=== PATIENT | male | born 1980 | race Caucasian/White ===

== ENCOUNTER 2019-10-31 11:52 | Emergency (ER) | payer BC, SELFPAY ==
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
[2019-10-31 12:15] VITALS: BP 136/89; PULSE 60; RESP 16; TEMP 36.5; O2SAT 100
[2019-10-31 12:29] LABS: Add Urine Microscopic? YES; Appearance Urine Clear (Clear); Bacteria Urine Trace /hpf; Bilirubin Urine Negative (Negative); Blood Urine Negative (Negative); Color Urine Yellow (Yellow); Glucose Urine UA Negative (Negative); Ketones Urine Negative (Negative); Leukocyte Esterase Ur Negative LEU/UL (Negative); Mucus Urine Rare /lpf; Nitrate Urine Negative (Negative); Protein Urine 2+ mg/dL (Negative); RBC Urine 0-2 /hpf (0-2); Specific Grav Ur 1.025 (1.001-1.035); Squamous Epithelial Cell Urine Rare /hpf (Few); Urobilinogen Urine Negative mg/dL (<2.0); WBC Urine 0-3 /hpf
[2019-10-31 12:35] LABS: Basophils Percent Auto 0.6 % (0.2-1.2); Eosinophils Percent Auto 0.1 % (0-4.4); Hematocrit 43.1 % (42.0-52.0); Immature Granulocyte Absolute 0.01 K/mm3 (0.00-0.031); Immature Granulocyte Percent A 0.1 % (0-0.5); Lymphocytes Absolute Auto 1.14 K/mm3 (0.9-3.2); Lymphocytes Percent Auto 16.1 % (18.3-44.2); Mean Corpuscular HGB Conc 34.8 g/dl (32-36); Mean Corpuscular Hemoglobin 30.4 pg (26-34); Mean Corpuscular Volume 87.4 fl (80-100); Mean Platelet Volume 10.3 fl (7.4-10.4); Monocytes Absolute Auto 0.3 K/mm3 (0.1-0.6); Monocytes Percent Auto 4.7 % (2.6-8.5); Neutrophils Absolute Auto 5.5 K/mm3 (1.3-6.7); Neutrophils Percent Auto 78.4 % (45.5-73.1); Platelet Count Result 211 k/mm3 (150-375); Red Blood Count 4.93 M/mm3 (4.6-6.20); Red Cell Distribution Width 12.6 % (11.5-14.5); White Blood Count 7.1 K/mm3 (4.5-10.0)
[2019-10-31 12:47] LABS: Amphetamine Screen Urine Negative (Negative); Barbiturate Screen Urine Negative (Negative); Benzodiazepines Screen Urine Negative (Negative); Cannabinoid Screen Urine Positive (Negative); Cocaine Screen Urine Negative (Negative); Methadone Screen Urine Negative (Negative); Opiate Screen Urine Negative (Negative); Phencyclidine Screen Urine Negative (Negative)
[2019-10-31 12:47] LABS: Ethanol < 10 mg/dL (<10)
[2019-10-31 12:49] LABS: Alanine Aminotransferase 24 U/L (4-50); Albumin Level 4.6 g/dL (3.5-5.1); Alkaline Phosphatase 65 U/L (38-126); Aspartate Amino Transferase 27 U/L (17-59); Bilirubin,Total 0.9 mg/dL (0.2-1.3); Blood Urea Nitrogen 17 mg/dL (9-20); Carbon Dioxide 27 mmol/L (22-30); Chloride 106 mmol/L (98-107); Estimated CRCL calculation 134 ml/min; Estimated Glomerular Filt Rate > 60; Glucose 103 mg/dL (75-110); Sodium 140 mmol/L (137-145)
[2019-10-31 13:17] LABS: Thyroid Stimulating Hormone 0.907 uIU/mL (0.465-4.680)
--- NOTE | 2019-10-31 14:15 | PC.NURSE ---
CRISIS IS HERE TO CONSULT WITH PATIENT
[2019-10-31 18:00] VITALS: BP 151/86; PULSE 58; RESP 14; TEMP 36.8; O2SAT 100
--- NOTE | 2019-10-31 18:09 | PC.NURSE ---
FOOD TRAY ORDERED FOR PT.
[2019-10-31 19:27] VITALS: BP 148/69; PULSE 55; RESP 12; TEMP 36.4; O2SAT 98
[2019-10-31 19:45] VITALS: BP 148/69; PULSE 58; RESP 14; O2SAT 100
--- NOTE | 2019-10-31 19:55 | PC.NURSE ---
Called Mis to transport to [place]...ETA 2029. #[phone]
== END 2019-10-31 20:55 ==
PROVIDERS: Emergency Medicine; Emergency Provider Emergency Medicine
DX: R45.851 Suicidal ideations (principal); R45.87 Impulsiveness; F32.9 Major depressive disorder, single episode, unspecified; Z87.891 Personal history of nicotine dependence
CPT/HCPCS: 36415; 80053; 80307; 81001; 84443; 85025; 99285

== ENCOUNTER 2021-01-17 18:06 | Emergency (ER) | payer BC, SELFPAY ==
[2021-01-17 18:12] VITALS: BP 144/82; PULSE 56; RESP 16; TEMP 37.1; O2SAT 99
--- NOTE | 2021-01-17 18:16 | ED.SKABFB ---
HPI - Skin/Abscess/Foreign Bdy General Chief complaint: Skin/Abscess/Foreign Body Stated complaint: rash Source: patient and RN notes reviewed Mode of arrival: ambulatory History of Present Illness HPI narrative: This is a 40-year-old male who presented to urgent care with a rash left lower extremity and forehead extending to the backside of his neck on the left side. 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 Patient notes that he put [id number] poison manuel treatment on as well as calamine lotion and apple cider vinegar to his lower extremity with improvement . He noted that the rash on his left lower extremity did improve but spread to his forehead and neck today. Patient does have scaling to his lower extremity and a small amount papules to the left side of his forehead that extent to his left back neck. denies any to visual disturbance, edema or erythema,oozing warm to site. The patient denies SOB, CP, palpitation, extremity numbness, lightheadedness, dizziness, constipation, diarrhea, chills, or fever. MD complaint: rash Related Data Home Medications Medication Instructions Recorded Confirmed sertraline 100 mg PO DAILY 10/31/19 bupropion HCl mg PO 01/17/21 Allergies Allergy/AdvReac Type Severity Reaction Status Date / Time No Known Allergies Allergy Unknown Verified 10/31/19 12:14 Review of Systems Review of Systems: Narrative: A 14 organ system Review of Systems was performed and pertinent positives included in the HPI, otherwise remaining ROS is negative. [facility] Past Medical History Medical History (Updated 01/17/21 @ 18:25 by DRAGAN Warren) Finger fracture, left GI bleed Nose fracture Surgical History Surgical History (Updated 10/31/19 @ 12:01 by Jackelyn Harkins) History of hand surgery Left 1st finger Family History Family History Father Hypertension Family history of heart disease in male family member before age 55 Grandparent Diabetes mellitus Acute myocardial infarction Family history of arthritis Other Family history of gout Social History Social History (Updated 10/31/19 @ 11:59 by Jackelyn Harkins) Smoking status: Former smoker Smoking end date: 07/29/02 Alcohol intake: former Substance use: current Substance use type: marijuana Gender identity (if verbalized by the patient): Male Exam Narrative: Exam Narrative: GENERAL: This is a well-nourished, well-developed patient, in no apparent distress. HEAD: normocephalic, atraumatic. EYES: PERRL. Sclera clear/white. Vision is grossly intact. EARS: External ears normal, auditory canals clear and without drainage, TMs normal without perforation. Hearing grossly intact. NOSE: External nose normal with no obvious nasal discharge, nares without redness, no rhinorrhea. THROAT: Mucous membranes moist, posterior pharynx clear. NECK: Neck supple, non-tender without lymphadenopathy, masses or thyromegaly. CARDIOVASCULAR: Regular rate and rhythm without murmurs, gallops, or rubs. RESPIRATORY: Clear to auscultation. Breath sounds equal bilaterally. No wheezes, rales, or rhonchi. GASTROINTESTINAL: Abdomen soft, non-tender, nondistended. Bowel sounds are active. No hepato-splenomegaly, or palpable masses. No guarding. SKIN: scaling to his lower extremity and a small amount papules to the left side of his forehead that extent to his left back neck NEURO: awake, alert, and oriented to person, place and time. There were no obvious focal neurologic abnormalities. Steady gait EXTREMITIES: Normal range of motion. No edema. No calf tenderness. Negative Homans sign bilaterally. BACK: Nontender without deformity or crepitance. No flank tenderness. Course Course Emergency Course: Patient given 7 days of prednisone instructed to continue use of calamine lotion with Benadryl to avoid scratchi
== END 2021-01-17 18:29 | disposition home or self-care (01) ==
PROVIDERS: Emergency Provider Nurse Practitioner; PCP Emergency Medicine
DX: L23.7 Allergic contact dermatitis due to plants, except food (principal); L25.9 Unspecified contact dermatitis, unspecified cause; Z87.891 Personal history of nicotine dependence
CPT/HCPCS: 99213; G0463

== ENCOUNTER 2021-11-24 15:54 | Emergency (ER) | payer BC, SELFPAY ==
--- NOTE | 2021-11-24 16:00 | ED.WOUNDLAC ---
HPI - Wound/Laceration General Chief Complaint: Wound/Laceration Stated Complaint: FINGER LACERATION Time Seen by Provider: 11/24/21 16:00 Source: patient Mode of arrival: ambulatory Limitations: no limitations History of Present Illness HPI narrative: 41-year-old male presented for complaint of laceration to the left index finger injury today. He states he cut the finger on a piece of farm equipment, covered it with a dressing but states it continues to bleed. Tetanus is up-to-date 10/2017. He denies numbness, tingling, weakness or decreased range of motion to the finger. Related Data Allergies Allergy/AdvReac Type Severity Reaction Status Date / Time No Known Allergies Allergy Unknown Verified 10/31/19 12:14 Review of Systems Review of Systems: CONSTITUTIONAL: Denies body aches, fever, chills, or sweats. EYES: Denies visual changes, redness, or discharge. ENT: Denies rhinorrhea, congestion, sore throat, or otalgia. CARDIOVASCULAR: Denies chest pain, palpitations, or edema. RESPIRATORY: Denies cough or dyspnea. GASTROINTESTINAL: Denies abdominal pain, nausea, vomiting, or diarrhea. GENITOURINARY: Denies dysuria or hematuria. SKIN: Finger laceration MUSCULOSKELETAL: Denies back pain, joint pain, or myalgia. NEUROLOGIC: Denies headache, numbness, tingling, or weakness. PSYCH: Denies depression or anxiety. [facility] Past Medical History Medical History (Updated 11/24/21 @ 16:12 by Stephany Valdez APRN) Finger fracture, left GI bleed Nose fracture Surgical History Surgical History History of hand surgery Left 1st finger Family History Family History Father Hypertension Family history of heart disease in male family member before age 55 Grandparent Diabetes mellitus Acute myocardial infarction Family history of arthritis Other Family history of gout Social History Social History Smoking status: Former smoker Smoking end date: 07/29/02 Alcohol intake: former Substance use: current Substance use type: marijuana Gender identity (if verbalized by the patient): Male Comments At time of signature, I have reviewed and agree with nursing past medical, surgical, social and family history unless otherwise noted. Please see nursing chart for further information. There is no relevant family history pertinent to the presenting complaint Exam Narrative: GENERAL: Well-appearing HEAD: Normocephalic, atraumatic. EYES: conjunctivae clear, and EOMI. ENT: Mucous membranes moist. . NECK: Supple. No lymphadenopathy CHEST: Clear to auscultation. No respiratory distress. HEART: Regular rate and rhythm. SKIN: Warm, dry. Left second digit with 0.5 cm linear laceration to the PIP, no active drainage. 2 cm linear laceration to the radial aspect of the proximal phalanx on the second digit of the left hand. Full range of motion, no concern for tendon injury, sensation intact. Cap refill less than 3 seconds. NEURO: Alert and oriented x3. PSYCH: Normal mood and affect Course Course Emergency Course: Patient is aware of diagnosis, understands and agrees to treatment plan. Anticipatory guidance given. Patient agrees to follow-up as directed and is aware of reasons to seek care at the emergency department. Portions of this record may have been created with voice recognition software Level of Care: Express Care Visit Vital Signs Vital signs: Vital Signs Temperature 97.6 F 11/24/21 16:11 Pulse Rate 71 11/24/21 16:11 Respiratory Rate 16 11/24/21 16:11 Blood Pressure 158/91 H 11/24/21 16:11 Pulse Oximetry 98 11/24/21 16:11 Temperature 97.6 F 11/24/21 16:11 Pulse Rate 71 11/24/21 16:11 Respiratory Rate 16 11/24/21 16:11 Blood Pressure 158/91 H 11/24/21 16:11 Pulse Oximetry 98 11/24/21 16:11 Reviewe
--- NOTE | 2021-11-24 16:06 | PC.NURSE ---
Last tetanus according to chart was 11/18/17
[2021-11-24 16:11] VITALS: BP 158/91; PULSE 71; RESP 16; TEMP 36.4; O2SAT 98
== END 2021-11-24 16:48 | disposition home or self-care (01) ==
PROVIDERS: Emergency Provider Nurse Practitioner Family; PCP Emergency Medicine
DX: S61.211A Laceration without foreign body of left index finger without damage to nail, initial encounter (principal); F17.200 Nicotine dependence, unspecified, uncomplicated; W30.9XXA Contact with unspecified agricultural machinery, initial encounter
CPT/HCPCS: 12031; 99213; G0463

== ENCOUNTER 2022-03-24 09:44 | Emergency (ER) | payer BC, SELFPAY ==
[2022-03-24 09:56] VITALS: BP 155/90; PULSE 67; RESP 16; TEMP 36.8; O2SAT 99
--- NOTE | 2022-03-24 11:19 | ED.GENADULT ---
HPI - General Adult General Chief complaint: Wound/Laceration Stated complaint: LIP LACERATION Source: patient Mode of arrival: ambulatory Limitations: no limitations History of Present Illness HPI narrative: Patient presents for evaluation of laceration to the lip. He indicates approximately 1 hour ago he lost his balance and fell. He attempted to brace his fall unsuccessfully. He states he cut his lower lip against limestone. No LOC. Not on blood thinners. No vomiting since the episode. He reports moderate pain in affected area, without descriptive quality or numerical rating. Tetanus is UTD. No underlying hx of DM. No additional complaints or concerns. Related Data Allergies Allergy/AdvReac Type Severity Reaction Status Date / Time No Known Allergies Allergy Unknown Verified 03/24/22 09:51 Review of Systems Review of Systems: CONSTITUTIONAL: Denies fever, chills, or sweats. EYES: Denies visual changes, redness, or discharge. ENT: Reports laceration to lower lip. Denies rhinorrhea, congestion, sore throat, or otalgia. CARDIOVASCULAR: Denies chest pain, palpitations, or edema. RESPIRATORY: Denies cough or dyspnea. GASTROINTESTINAL: Denies abdominal pain, nausea, vomiting, or diarrhea. GENITOURINARY: Denies dysuria or hematuria. SKIN: Denies rash or itching. MUSCULOSKELETAL: Denies back pain, joint pain, or myalgia. NEUROLOGIC: Denies headache, numbness, dizziness, or weakness. PSYCHIATRIC: Denies anxiety or depression. [facility] Past Medical History Medical History (Updated 03/24/22 @ 11:23 by KEYON Sexton, MELIDA) Finger fracture, left GI bleed Nose fracture Surgical History Surgical History (Updated 03/24/22 @ 11:23 by KEYON Sexton, MELIDA) History of hand surgery Left 1st finger History of neck surgery Family History Family History Father Hypertension Family history of heart disease in male family member before age 55 Grandparent Diabetes mellitus Acute myocardial infarction Family history of arthritis Other Family history of gout Social History Social History Smoking status: Former smoker Smoking end date: 07/29/02 Alcohol intake: former Substance use: current Substance use type: marijuana Gender identity (if verbalized by the patient): Male Exam Narrative: GENERAL: Well-appearing, well-nourished, and in no acute distress. HEAD: Normocephalic EYES: PERRLA and EOMI. ENT: Nares clear, no rhinorrhea or epistaxis. Mucous membranes moist. There is an approximately 2 cm laceration to lower lip in flap formation. It does not involve the vermilion border. There is a 2mm puncture wound to inner lip that seems to communicate with a 2mm area of dried sanguinous drainage to skin just inferior to lower lip. The puncture wound to inner lip already seems approximated. Tooth #8 and tooth #9 are chipped. Posterior pharynx without tonsillar hypertrophy exudate or other lesions. Bilateral TMs pearly leblanc nonbulging NECK: Supple. No adenopathy or masses. No carotid bruits or JVD CHEST: Clear to auscultation. No respiratory distress. No wheezes rales or rhonchi HEART: Regular rate and rhythm. No murmur heard. Normal peripheral pulses. ABDOMEN: Soft, nontender, nondistended, normal active bowel sounds. EXTREMITIES: Normal range of motion. No edema. SKIN: Warm, dry, no rash. NEURO: No focal deficits. Alert and oriented x3. PSYCH: Normal mood and affect. Course Course Emergency Course: This is a 41-year-old male that presented for evaluation of a laceration to the lower lip. I approximated the laceration with 5 sutures. There were 2 areas that I wanted to close further, but patient declined. I did inform him that there was greater likelihood of wound dehiscence. He verbalized understanding and was willing to take that risk. He is up to date on tetanus.
== END 2022-03-24 10:51 | disposition home or self-care (01) ==
PROVIDERS: Emergency Provider Nurse Practitioner; PCP Emergency Medicine
DX: S01.511A Laceration without foreign body of lip, initial encounter (principal); W19.XXXA Unspecified fall, initial encounter; Z87.891 Personal history of nicotine dependence
CPT/HCPCS: 12011; 99213; G0463